=== PATIENT | male | born 1985 | race Two or more races ===

== ENCOUNTER 2017-11-16 15:57 | Emergency (ER) | payer OTHER ==
[~2017-11-16] VITALS: Ht 172.7 cm; Wt 90.7 kg
[~2017-11-16 15:57] MED LIST: RANI150C11 PO; VALP250C PO
[2017-11-16] MEDS ORDERED: SODIUM CHLORIDE 0.9% 1,000 ML IV ONE (16:03)
[2017-11-16] MEDS ORDERED: LORazepam 2MG/ML-1ML VIAL ONE (16:03)
[2017-11-16] MEDS ORDERED: LORazepam 2MG/ML-1ML VIAL IV ONE (16:15)
[2017-11-16 16:35] LABS: Basophils # (auto) 0.1 uL; Basophils % (auto) 1.1 % (0.0-2.0); Eosinophils # (auto) 0.1 uL; Eosinophils % (auto) 0.9 % (0.0-7.0); Hematocrit 52.7 % (41.0-53.0); Hemoglobin 17.4 g/dL (13.5-17.5); Lymphocytes # (auto) 3.2 uL; Lymphocytes % (auto) 42.7 % (10.0-50.0); Mean Corpuscular Hemoglobin 31.2 pg (28.0-32.0); Mean Corpuscular Hgb Conc. 33.1 g/dL (32.0-36.0); Mean Corpuscular Volume 94.5 fL (80.0-100.0); Monocytes # (auto) 0.9 uL; Monocytes % (auto) 11.8 % (0.0-12.0); Neutrophils # (auto) 3.3 uL; Neutrophils % (auto) 43.5 % (37.0-80.0); Platelet Count (auto) 296 10^3/uL (140-450); Red Blood Cells 5.58 10^6/uL (4.5-5.90); Red Cell Distribution Width 13.5 % (11.8-14.3); White Blood Cell 7.6 10^3/uL (4.4-10.8)
[2017-11-16 16:50] LABS: Alanine Aminotransferase 41 U/L (16-61); Anion Gap 14 (5-15); Aspartate Aminotransferase 24 U/L (15-37); BUN/Creatinine Ratio 7.6; Blood Urea Nitrogen 12 mg/dL (7-18); Calcium 8.9 mg/dL (8.5-10.1); Carbon Dioxide 21 mmol/L (21-32); Chloride 102 mmol/L (98-107); GFR African American 65 mL/min; GFR Non-African American 54 mL/min; Glucose 104 mg/dL (74-106); Potassium 4.4 mmol/L (3.5-5.1); Sodium 137 mmol/L (136-145)
[2017-11-16 16:55] LABS: Alkaline Phosphatase 93 U/L (45-117); Bilirubin, Total 0.7 mg/dL (0.2-1.0); Total Protein 8.9 g/dL (6.4-8.2)
[2017-11-16 18:53] VITALS: BP 123/68
[2017-11-16] MEDS ORDERED: IBUPROFEN 600 MG TAB PO ONE (19:30)
== END 2017-11-16 19:32 | disposition home or self-care (01) ==
LOC: ER 16:00 → EEVIPCON 16:00 → ER 19:32
DX: R56.9 Unspecified convulsions (principal); R41.82 Altered mental status, unspecified
CPT/HCPCS: 36415; 70450; 80053; 80164; 84484; 85025; 93005; 96361; 96374; 99285; J2060